=== PATIENT | female | born 1995 | race Caucasian/White ===

== ENCOUNTER 2016-11-17 20:30 | Emergency (ER) | payer MEDICAID ==
[2016-11-17 20:55] VITALS: BP 120/80
[2016-11-17] MEDS ORDERED: BICILLIN L-A IM ONE (22:31)
[2016-11-17] MEDS ORDERED: NORCO 5/325 PO ONE (22:31)
--- NOTE | 2016-11-17 22:54 | Emergency Department Report ---
ED ENT HPI - General Chief complaint: Sore Throat Stated complaint: sore throat Time Seen by Provider: 11/17/16 22:18 Source: patient Mode of arrival: Ambulatory Limitations: No Limitations - History of Present Illness Initial comments: PT states it feels like she has strep throat again. PT reports + sick exposure. PT states no relief with Alkasetzer. PT states she can eat but has been limiting how much she has been eating due to pt's pain. PT states her throat hurts worse when she eats. MD complaint: sore throat Onset/Timin -: Gradual, days(s) Location: throat Severity scale (0 -10): 10 Consistency: constant Improves with: none Worsens with: swallowing, eating, rest Associated Symptoms: fever, pain with swallowing, sore throat. denies: cough - Related Data Allergies Allergy/AdvReac Type Severity Reaction Status Date / Time No Known Allergies Allergy Unverified 11/17/16 20:50 ED Dental HPI - General Chief complaint: Sore Throat Stated complaint: WHITNEY/THROAT/BODY PAIN Time Seen by Provider: 11/17/16 22:18 Source: patient Mode of arrival: Ambulatory Limitations: No Limitations - Related Data Allergies Allergy/AdvReac Type Severity Reaction Status Date / Time No Known Allergies Allergy Unverified 11/17/16 20:50 ED Review of Systems ROS: Stated complaint: WHITNEY/THROAT/BODY PAIN Other details as noted in HPI Comment: All other systems reviewed and negative Constitutional: chills, fever, weakness ENT: throat pain Respiratory: denies: cough Gastrointestinal: nausea (pt states she feels hungry - only ate a fruit cup today. able to drink fluids ). denies: abdominal pain, vomiting Skin: denies: rash ED Past Medical Hx - Past Medical History Previous Medical History?: No - Surgical History Past Surgical History?: Yes Additional Surgical History: [id number] - Social History Smoking Status: Current Every Day Smoker Substance Use Type: None ED Physical Exam - General Limitations: No Limitations General appearance: alert, in no apparent distress - Head Head exam: Present: atraumatic, normocephalic - Eye Eye exam: Present: normal appearance. Absent: conjunctival injection - ENT ENT exam: Present: mucous membranes moist, TM's normal bilaterally, normal external ear exam - Expanded ENT Exam Expanded Mouth exam: Absent: drooling, trismus Throat exam: Positive: tonsillar erythema, tonsillomegaly, tonsillar exudate. Negative: R peritonsillar mass, L peritonsillar mass - Neck Neck exam: Present: normal inspection, tenderness, full ROM, lymphadenopathy - Respiratory Respiratory exam: Present: normal lung sounds bilaterally. Absent: respiratory distress, wheezes, chest wall tenderness - Cardiovascular Cardiovascular Exam: Present: normal rhythm, tachycardia - GI/Abdominal GI/Abdominal exam: Present: soft. Absent: tenderness, guarding - Extremities Exam Extremities exam: Present: normal inspection, full ROM - Back Exam Back exam: Present: normal inspection, full ROM. Absent: tenderness, CVA tenderness (R), CVA tenderness (L) - Neurological Exam Neurological exam: Present: alert, oriented X3 - Psychiatric Psychiatric exam: Present: normal affect, normal mood - Skin Skin exam: Present: warm, dry, intact ED Course Vital Signs 11/17/16 11/17/16 20:50 22:06 Temperature 100.2 F H 99.6 F Pulse Rate 117 H 108 H Respiratory 22 22 Rate Blood Pressure 120/80 O2 Sat by Pulse 100 100 Oximetry - Reevaluation(s) Reevaluation #1: 11/17/16 22:57 PT aware of rapid strep result. PT states this feels like previous strep throat. PT's physical exam indicates strep pharyngitis Reevaluation #2: 11/17/16 23:02 PT tolerating po fluids. PT aware of pending dispo. Strict return precautions reviewed. PT verbalizes understanding. - Pulse Oximetry Interpretation Digit-Finger Initial Pulse Oximetry Readin Actions Taken: none ED Medical Decision Making - Differential Diagnosis viral illness, strep pharyngits Critical care attestation.: If time is entered above; I have spent that time in minutes in the direct care of this critically ill patient, excluding procedure time. ED Disposition Clinical Impression: Exudative pharyngitis Disposition: DISCHARGED TO HOME OR SELFCARE Is pt being admited?: No Does the pt Need Aspirin: No Condition: Stable Instructions: Strep Throat (ED) Additional Instructions: OTC Motrin/ tylenol as needed for pain Increase po fluids Follow up with PCP in 3-5 days Return to ED if worsening or concerns Referrals: Alfonso BOTELLO [Other] - 3-5 Days Time of Disposition: 22:59
[2016-11-17] MEDS ORDERED: MOTRIN PO ONE (22:56)
== END 2016-11-17 23:05 | disposition home or self-care (01) ==
LOC: ED 20:30
DX: J02.9 Acute pharyngitis, unspecified (principal); F17.200 Nicotine dependence, unspecified, uncomplicated
CPT/HCPCS: 87116; 87430; 96372; 99282; J0561